=== PATIENT | male | born 1970 | race Caucasian/White ===

== ENCOUNTER 2016-06-09 09:04 | Emergency (ER) | payer OTHER ==
[~2016-06-09] VITALS: Ht 177.8 cm; Wt 104.0 kg
[2016-06-09 09:14] VITALS: TEMP 36.8; Ht 177.8 cm; Wt 104.0 kg
--- NOTE | 2016-06-09 09:34 | DIAGNOSTIC IMAGING REPORT ---
RIGHT ANKLE 3 VIEWS CLINICAL HISTORY: Right ankle pain. Twisting injury. FINDINGS: 3 views of the right ankle are obtained. No prior studies are available for comparison at the time of dictation. The skeletal structures are well mineralized. No fracture is seen. The ankle mortise is intact. Mild contour irregularity of the distal fibula may be related to remote trauma. There are large dorsal and plantar calcaneal enthesophytes. A joint effusion is noted. Soft tissue swelling is present around the ankle. IMPRESSION: Soft tissue edema and joint effusion. No acute right ankle fracture is identified. Electronically signed by: Cuate Bhat M.D. 06/09/2016 9:32 AM Dictated Date/Time: 06/09/2016 9:31 AM
[2016-06-09 10:05] VITALS: BP 133/76; PULSE 78; O2SAT 98
--- NOTE | 2016-06-09 16:55 | EMERGENCY ROOM VISIT NOTE ---
ED Visit Note First contact with patient: 09:09 CHIEF COMPLAINT: Right ankle pain. HISTORY OF PRESENT ILLNESS: Mr. Lund is a 46-year old white male who ambulates with crutches into the ED complaining of right ankle pain. He reports approximately 4 days ago he walked into a hole that was on the sidewalk and twisted his right ankle. Since that time he has been having increasing pain and swelling over the lateral aspect of the ankle. Currently he describes his pain as an achy sensation. Pain is located over the area just anterior to the lateral malleolus and the ligamentous structures. His pain is nonradiating. His pain worsens with palpation and inversion and plantarflexion. He has not identified any alleviating factors related to the pain. He rates his discomfort 5/10. He has not taken any medication for pain. Patient denies any associated symptoms including hip pain, knee pain, foot pain, leg weakness/numbness/tingling. He denies any previous significant injuries or trauma to the ankle. REVIEW OF SYSTEMS: As noted above in History of Present Illness. PAST MEDICAL HISTORY: Kidney stones, status post unspecified bilateral knee surgery. CURRENT MEDICATIONS: Patient denies. ALLERGIES TO MEDICATIONS: Indomethacin, propoxyphene. SOCIAL HISTORY: Patient is currently employed; he lives with his and feels safe in his home environment; he denies tobacco use; he admits to alcohol use. PHYSICAL EXAM: Vital Signs: Date Time Temp Pulse Resp B/P Pulse Ox O2 Delivery O2 Flow Rate FiO2 06/09/16 10:05 78 18 133/76 98 06/09/16 09:14 36.8 83 18 149/82 94 Room Air General: 46 year old female in mild distress due to pain, nontoxic-appearing, afebrile and hemodynamically stable. Neurological: Awake, alert, oriented to person place and time. Answering questions appropriately and following commands. Skin: Warm dry and pink. No soft tissue trauma. Right Lower Extremity: No gross felicia deformities. No tenderness in the hip or knee. Tenderness over the ligamentous structures anterior to the lateral malleolus with mild swelling but no bony deformity, bony crepitus or ecchymosis. Mild increase in pain with stressing the ligamentous structures throughout the ankle but no acute laxity. Full range of motion testing throughout the ankle. Throughout the foot the skin is pink and warm with brisk capillary refill. Able to distinguish light sensations through all dermatomes of the foot. ED COURSE: Patient is assessed as noted above. Right Ankle X-Rays: Was read by myself and the radiologist showing no acute fractures or dislocations. Patient is given ice for pain, swelling and comfort; patient was offered pain medications and refused. Patient is placed in a gel splint and is instructed on crutch use. Patient is educated about his condition and instructed on his treatment plan; he verbalizes understanding and agreement with the our plan. CLINICAL IMPRESSION: Right ankle sprain DISPOSITION: Patient is discharged to home in stable condition; prior to departure he was reassessed and subjectively reported he was pain-free. PLAN: Comfort measures were discussed with the patient. Patient was encouraged to follow-up with an orthopedic physician if no better in 7 to 10 days. Patient was encouraged to return emergency department as needed for increasing pain or swelling or any new/concerning symptoms.
== END 2016-06-09 10:07 | disposition home or self-care (01) ==
LOC: C.EDB 09:05 → C.EDA 10:07
DX: S93.401A Sprain of unspecified ligament of right ankle, initial encounter (principal); X58.XXXA Exposure to other specified factors, initial encounter; Z87.442 Personal history of urinary calculi; Z98.890 Other specified postprocedural states; Z88.8 Allergy status to other drugs, medicaments and biological substances

== ENCOUNTER 2016-07-18 20:39 | Emergency (ER) | payer OTHER ==
[~2016-07-18] VITALS: Ht 177.8 cm; Wt 105.2 kg
[2016-07-18 20:42] VITALS: TEMP 36.7; Ht 177.8 cm; Wt 105.2 kg
[2016-07-18] MEDS ORDERED: GI COCKTAIL PO ONE (22:00)
[2016-07-18] MEDS ORDERED: ALUMINUM/MAGNESIUM SUSP 30 ML UDC ONE (22:05)
[2016-07-18] MEDS ORDERED: LIDOCAINE HCL 2% VISC SOLN 20 ML UDC ONE (22:05)
[2016-07-18 22:10] LABS: BASO % 0.5 %; BASO ABS # 0.04 K/uL (0-0.2); COMPLETE YES; EOS % 1.9 %; HEMATOCRIT 43.8 % (42-52); IG% 0.1 %; LYMPH % 27.5 %; LYMPH ABS # 2.35 K/uL (1.2-3.4); MEAN CELL VOLUME 80.7 fL (80-100); MEAN CORPUSCULAR HEMOGLOBIN 27.6 pg (25-34); MEAN CORPUSCULAR HGB CONC 34.2 g/dl (32-36); MEAN PLATELET VOLUME 10.7 fL (7.4-10.4); MONO % 7.9 %; NEUT % 62.1 %; PLATELET COUNT 258 K/uL (130-400); RED BLOOD COUNT 5.43 M/uL (4.7-6.1); WHITE BLOOD COUNT 8.56 K/uL (4.8-10.8)
--- NOTE | 2016-07-18 22:19 | DIAGNOSTIC IMAGING REPORT ---
CHEST 2 VIEWS ROUTINE CLINICAL HISTORY: pain radiating to the back pain COMPARISON STUDY: No previous studies for comparison. FINDINGS: The bones soft tissues and hemidiaphragms are normal. The cardiomediastinal silhouette is normal. The lungs are clear. The pulmonary vasculature is normal. IMPRESSION: Negative chest. Electronically signed by: Tab Morrison M.D. 07/18/2016 10:17 PM Dictated Date/Time: 07/18/2016 10:17 PM
[2016-07-18 22:30] LABS: ALT/SGPT 64 U/L (12-78); BLOOD UREA NITROGEN 16 mg/dl (7-18); CARBON DIOXIDE 26 mmol/L (21-32); CHLORIDE 107 mmol/L (98-107); GLUCOSE 126 mg/dl (70-99); POTASSIUM 3.5 mmol/L (3.5-5.1); SODIUM 140 mmol/L (136-145)
[2016-07-18 22:33] LABS: ALKALINE PHOSPHATASE 83 U/L (45-117); AST/SGOT 19 U/L (15-37)
[2016-07-18 22:34] LABS: CALCIUM 9.2 mg/dl (8.5-10.1)
[2016-07-18 22:47] VITALS: BP 126/74; PULSE 72; O2SAT 94
--- NOTE | 2016-07-18 23:07 | EMERGENCY ROOM VISIT NOTE ---
History First contact with patient: 21:13 Chief Complaint: ILLNESS Stated Complaint: NERVOUSNESS, TINGLING IN LEFT HAND History of Present Illness The patient is a 46 year old male who presents to the Emergency Room with complaints of heartburn for the last 3 days. The patient states that he feels like he swallowed a "hot baby". The pain has been radiating to the left side of his back, has been constant, is not exacerbated by movement, and is not effected by eating or drinking. 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 On examination tonight he reports that the burning and radiation to his back has now subsided and now feels gassy and bloated. He denies any chest pain, pain radiating to the arm, headache, lightheadedness, changes in vision, nausea, vomiting, abdominal pain, or fever. Review of Systems See HPI for pertinent positives and negatives. A total of ten systems were reviewed and were otherwise negative. Past Medical/Surgical History Medical Problems: (1) No Known Active Medical Problems Surgical Problems: (1) H/O arthroscopic knee surgery Social History Smoking Status: Never Smoker Smokeless Tobacco Use: No Current/Historical Medications No Active Prescriptions or Reported Meds Allergies Coded Allergies: Propoxyphene (Unverified Allergy, Severe, RASH, 07/18/16) Indomethacin (Unverified Allergy, Intermediate, swollen face, 07/18/16) pt states that he has taken this med before with no reaction, however his doctor was ordering this med he had some at home so before he got the prescription filled he took the one he had at home. As a result he got a swollen face. Later found out that the medication he had at home was 6 years passed expiration date. So not sure if it was an allergy or because the med was . [place] Physical Exam Vital Signs Date Time Temp Pulse Resp B/P Pulse Ox O2 Delivery O2 Flow Rate FiO2 07/18/16 22:47 72 16 126/74 94 Room Air 07/18/16 20:42 36.7 71 18 148/89 92 Room Air Physical Exam GENERAL: Awake, alert, well-appearing, in no distress HENT: Normocephalic, atraumatic. EYES: Normal conjunctiva. Sclera non-icteric. NECK: Supple. Trachea midline. RESPIRATORY: Clear to auscultation. Good inspiratory effort CARDIAC: Regular rate, normal rhythm. Extremities warm and well perfused. Pulses equal. ABDOMEN: Soft, non-distended. No tenderness to palpation. RECTAL: Deferred. MUSCULOSKELETAL: Chest examination reveals no tenderness. The back is symmetrical on inspection without obvious abnormality. There is no CVA tenderness to palpation. LOWER EXTREMITIES: Calves are equal size bilaterally and non-tender. No edema. No discoloration. NEURO: Normal sensorium. No sensory or motor deficits noted. SKIN: No rash or jaundice noted. Medical Decision & Procedures Laboratory Results 07/18/16 21:55 Red Blood Count 5.43, Mean Corpuscular Volume 80.7, Mean Corpuscular Hemoglobin 27.6, Mean Corpuscular Hemoglobin Concent 34.2, Mean Platelet Volume 10.7, Neutrophils (%) (Auto) 62.1, Lymphocytes (%) (Auto) 27.5, Monocytes (%) (Auto) 7.9, Eosinophils (%) (Auto) 1.9, Basophils (%) (Auto) 0.5, Neutrophils # (Auto) 5.32, Lymphocytes # (Auto) 2.35, Monocytes # (Auto) 0.68, Eosinophils # (Auto) 0.16, Basophils # (Auto) 0.04 07/18/16 21:55 Test 07/18/16 21:55 White Blood Count 8.56 K/uL (4.8-10.8) Red Blood Count 5.43 M/uL (4.7-6.1) Hemoglobin 15.0 g/dL (14.0-18.0) Hematocrit 43.8 % (42-52) Mean Corpuscular Volume 80.7 fL (80-100) Mean Corpuscular Hemoglobin 27.6 pg (25-34) Mean Corpuscular Hemoglobin Concent 34.2 g/dl (32-36) Platelet Count 258 K/uL (130-400) Mean Platelet Volume 10.7 fL (7.4-10.4) Neutrophils (%) (Auto) 62.1 % Lymphocytes (%) (Auto) 27.5 % Monocytes (%) (Auto) 7.9 % Eosinophils (%) (Auto) 1.9 % Basophils (%) (Auto) 0.5 % Neutrophils # (Auto) 5.32 K/uL (1.4-6.5) Lymphocytes # (Auto) 2.35 K/uL (1.2-3.4) Monocytes # (Auto) 0.68 K/uL (0.11-0.59) Eosinophils # (Auto) 0.16 K/uL (0-0.5) Basophils # (Auto) 0.04 K/uL (0-0.2) RDW Standard Deviation 35.8 fL (36.4-46.3) RDW Coefficient of Variation 12.4 % (11.5-14.5) Immature Granulocyte % (Auto) 0.1 % Immature Granulocyte # (Auto) 0.01 K/uL (0.00-0.02) Anion Gap 7.0 mmol/L (3-11) Est Creatinine Clear Calc Drug Dose 85.3 ml/min Estimated GFR () 75.3 Estimated GFR (Non- 65.0 BUN/Creatinine Ratio 12.0 (10-20) Calcium Level 9.2 mg/dl (8.5-10.1) Total Bilirubin 0.3 mg/dl (0.2-1) Direct Bilirubin < 0.1 mg/dl (0-0.2) Aspartate Amino Transf (AST/SGOT) 19 U/L (15-37) Alanine Aminotransferase (ALT/SGPT) 64 U/L (12-78) Alkaline Phosphatase 83 U/L (45-117) Troponin I < 0.015 ng/ml (0-0.045) Total Protein 8.2 gm/dl (6.4-8.2) Albumin 4.3 gm/dl (3.4-5.0) Lipase 271 U/L (73-393) Medications Administered Medications (Trade) Dose Ordered Sig/Marti Route Start Time Stop Time Status Last Admin Dose Admin Miscellaneous Medication (Gi Cocktail) 24 ml ONE ONCE PO 07/18/16 22:00 07/18/16 22:01 DC 07/18/16 22:00 24 ML Lidocaine HCl (Viscous Lidocaine 2% Soln) 20 ml STK-MED ONCE .ROUTE 07/18/16 22:05 07/18/16 22:06 DC 07/18/16 22:05 20 ML Al Hydroxide/Mg Hydroxide (Maalox Susp) 30 ml STK-MED ONCE .ROUTE 07/18/16 22:05 07/18/16 22:06 DC 07/18/16 22:05 30 ML Medical Decision Patient is a 46 year old male that presents with a 3 day history of epigastric pain Differential diagnosis considered includes gastritis, myocardial infarction, gastric ulcer, esophageal spasm, aortic dissection, and musculoskeletal Labs Ordered: CBC, BMP, Lipase, LFTs, Troponin Imaging Ordered: Chest X Ray, EKG Medications: GI Cocktail Patient felt better after receiving the GI cocktail and had flatulence associated with relief of discomfort Impression Primary Impression: Epigastric abdominal pain Additional Impression: Left-sided thoracic back pain Departure Information Dispostion Home / Self-Care Condition GOOD Prescriptions No Active Prescriptions or Reported Meds Referrals No Doctor, Assigned (PCP) Patient Instructions [facility] Problem Qualifiers Additional Impression: Left-sided thoracic back pain Chronicity: acute Qualified Codes: M54.6 - Pain in thoracic spine
--- NOTE | 2016-07-18 23:21 | EMERGENCY ROOM VISIT NOTE ---
History Report prepared by Juan Pablo: Wiley Arevalo Under the Supervision of: Dr. Cuate Guadalupe M.D. First contact with patient: 21:13 Chief Complaint: ILLNESS Stated Complaint: NERVOUSNESS, TINGLING IN LEFT HAND History of Present Illness The patient is a 46 year old male who presents to the Emergency Room with complaints of constant upper back pain beginning 3 days ago. He describes the pain as a "burning" pain. He states that his pain radiates into his left shoulder blade. He states that his pain began in his abdomen and moved to his back. The patient has a previous history of GERD while chewing tobacco, but notes that he no longer chews tobacco. He states that his current pain feels like his previous GERD. He denies any fevers, or vomiting. The patient has no history of heart attacks. He notes that he got very nervous when his symptoms began. Source of History: patient Onset: 3 days ago Position: back Quality: burning Timing: constant Associated Symptoms: + abdominal pain Note: The patient also complains of pain radiating into his left shoulder blade. Review of Systems See HPI for pertinent positives & negatives. A total of 10 systems reviewed and were otherwise negative. Past Medical & Surgical Medical Problems: (1) No Known Active Medical Problems Surgical Problems: (1) H/O arthroscopic knee surgery Family History No pertinent family history stated. Social History Smoking Status: Never Smoker Occupation Status: employed Current/Historical Medications No Active Prescriptions or Reported Meds Allergies Coded Allergies: Propoxyphene (Unverified Allergy, Severe, RASH, 07/18/16) Indomethacin (Unverified Allergy, Intermediate, swollen face, 07/18/16) pt states that he has taken this med before with no reaction, however his doctor was ordering this med he had some at home so before he got the prescription filled he took the one he had at home. As a result he got a swollen face. Later found out that the medication he had at home was 6 years passed expiration date. So not sure if it was an allergy or because the med was . [place] Physical Exam Vital Signs Date Time Temp Pulse Resp B/P Pulse Ox O2 Delivery O2 Flow Rate FiO2 07/18/16 22:47 72 16 126/74 94 Room Air 07/18/16 20:42 36.7 71 18 148/89 92 Room Air Physical Exam GENERAL: Patient is in no acute distress. HEENT: No acute trauma, normocephalic atraumatic, mucous membranes moist, no nasal congestion, no scleral icterus. NECK: No stridor, no adenopathy, no meningismus, trachea is midline. LUNGS: Clear to auscultation bilaterally, no wheeze, no rhonchi, breath sounds equal. HEART: Without murmurs gallops or rubs, regular rate and rhythm. ABDOMEN: Soft, nontender, bowel sounds positive, no hernias, no peritonitis. BACK: Nontender thoracic back musculature EXTREMITIES: No cyanosis or edema, full range of motion of all the joints without pain or difficulty, no signs for acute trauma. NEUROLOGIC: Oriented x 3, no acute motor or sensory deficits, no focal weakness. SKIN: No rash, no jaundice, no diaphoresis. Medical Decision & Procedures ER Provider Diagnostic Interpretation: X-ray results as stated below per interpretation by me and the radiologist: CHEST 2 VIEWS ROUTINE FINDINGS: The bones soft tissues and hemidiaphragms are normal. The cardiomediastinal silhouette is normal. The lungs are clear. The pulmonary vasculature is normal. IMPRESSION: Negative chest. Electronically signed by: Tab Morrison M.D. Laboratory Results 07/18/16 21:55 Red Blood Count 5.43, Mean Corpuscular Volume 80.7, Mean Corpuscular Hemoglobin 27.6, Mean Corpuscular Hemoglobin Concent 34.2, Mean Platelet Volume 10.7, Neutrophils (%) (Auto) 62.1, Lymphocytes (%) (Auto) 27.5, Monocytes (%) (Auto) 7.9, Eosinophils (%) (Auto) 1.9, Basophils (%) (Auto) 0.5, Neutrophils # (Auto) 5.32, Lymphocytes # (Auto) 2.35, Monocytes # (Auto) 0.68, Eosinophils # (Auto) 0.16, Basophils # (Auto) 0.04 07/18/16 21:55 Test 07/18/16 21:55 White Blood Count 8.56 K/uL (4.8-10.8) Red Blood Count 5.43 M/uL (4.7-6.1) Hemoglobin 15.0 g/dL (14.0-18.0) Hematocrit 43.8 % (42-52) Mean Corpuscular Volume 80.7 fL (80-100) Mean Corpuscular Hemoglobin 27.6 pg (25-34) Mean Corpuscular Hemoglobin Concent 34.2 g/dl (32-36) Platelet Count 258 K/uL (130-400) Mean Platelet Volume 10.7 fL (7.4-10.4) Neutrophils (%) (Auto) 62.1 % Lymphocytes (%) (Auto) 27.5 % Monocytes (%) (Auto) 7.9 % Eosinophils (%) (Auto) 1.9 % Basophils (%) (Auto) 0.5 % Neutrophils # (Auto) 5.32 K/uL (1.4-6.5) Lymphocytes # (Auto) 2.35 K/uL (1.2-3.4) Monocytes # (Auto) 0.68 K/uL (0.11-0.59) Eosinophils # (Auto) 0.16 K/uL (0-0.5) Basophils # (Auto) 0.04 K/uL (0-0.2) RDW Standard Deviation 35.8 fL (36.4-46.3) RDW Coefficient of Variation 12.4 % (11.5-14.5) Immature Granulocyte % (Auto) 0.1 % Immature Granulocyte # (Auto) 0.01 K/uL (0.00-0.02) Anion Gap 7.0 mmol/L (3-11) Est Creatinine Clear Calc Drug Dose 85.3 ml/min Estimated GFR () 75.3 Estimated GFR (Non- 65.0 BUN/Creatinine Ratio 12.0 (10-20) Calcium Level 9.2 mg/dl (8.5-10.1) Total Bilirubin 0.3 mg/dl (0.2-1) Direct Bilirubin < 0.1 mg/dl (0-0.2) Aspartate Amino Transf (AST/SGOT) 19 U/L (15-37) Alanine Aminotransferase (ALT/SGPT) 64 U/L (12-78) Alkaline Phosphatase 83 U/L (45-117) Troponin I < 0.015 ng/ml (0-0.045) Total Protein 8.2 gm/dl (6.4-8.2) Albumin 4.3 gm/dl (3.4-5.0) Lipase 271 U/L (73-393) Laboratory results reviewed by me. Medications Administered Medications (Trade) Dose Ordered Sig/Marti Route Start Time Stop Time Status Last Admin Dose Admin Miscellaneous Medication (Gi Cocktail) 24 ml ONE ONCE PO 07/18/16 22:00 07/18/16 22:01 DC 07/18/16 22:00 24 ML Lidocaine HCl (Viscous Lidocaine 2% Soln) 20 ml STK-MED ONCE .ROUTE 07/18/16 22:05 07/18/16 22:06 DC 07/18/16 22:05 20 ML Al Hydroxide/Mg Hydroxide (Maalox Susp) 30 ml STK-MED ONCE .ROUTE 07/18/16 22:05 07/18/16 22:06 DC 07/18/16 22:05 30 ML ECG Indication: back/shoulder pain Rate (beats per minute): 71 Rhythm: normal sinus Findings: no acute ischemic change, no ectopy ED Course 2115: The patient was evaluated in room C2. A complete history and physical exam was performed. 2144: The patient's burning pain has resolved. He states that he currently feels "gassy". : Ordered GI cocktail 24 mL PO. 2221: I reassessed the patient. He is resting comfortably. His symptoms appear to have improved. 2309: Reevaluated the patient. Discussed results and discharge instructions: he verbalized understanding and agreement. The patient is ready for discharge. Medical Decision The patient is a 46 year old male who presents to the ED with complaints of back pain. Differential diagnoses considered include musculoskeletal pain, aortic dissection, pancreatitis, biliary colic, pneumonia, GERD, and [place]. There is no leukocytosis or concerning anemia. No significant electrolyte abnormality, kidney failure or hepatitis. The patient does not have evidence for pancreatitis by our testing. EKG shows a normal sinus rhythm, no acute ischemia. Cardiac enzyme testing times one is not consistent with acute cardiac injury. Chest film shows no free air, mediastinal widening or pneumothorax. The patient was given a GI cocktail, he is now symptom-free. The patient states that he feels this may be reflux and/or gas. There certainly is no evidence for an acute cardiac event. The patient was reassured and is being discharged home on antacid medications. Impression Primary Impression: Epigastric abdominal pain Additional Impression: Left-sided thoracic back pain Scribe Attestation The scribe's documentation has been prepared under my direction and personally reviewed by me in its entirety. I confirm that the note above accurately reflects all work, treatment, procedures, and medical decision making performed by me. Departure Information Dispostion Home / Self-Care Prescriptions No Active Prescriptions or Reported Meds Referrals No Doctor, Assigned (PCP) Forms HOME CARE DOCUMENTATION FORM, IMPORTANT VISIT INFORMATION, WORK / SCHOOL INSTRUCTIONS Patient Instructions My [facility] Additional Instructions - Follow up with your family doctor in the next week - Take over the counter Zantac or Prilosec daily to help relieve the epigastric pain that you experienced - If your pain recurs with exertion, you have any chest pain, fever, or worsening abdominal pain, or any other concerning symptoms please be seen by a doctor or return to the emergency department Problem Qualifiers Additional Impression: Left-sided thoracic back pain Chronicity: acute Qualified Codes: M54.6 - Pain in thoracic spine
== END 2016-07-18 23:18 | disposition home or self-care (01) ==
LOC: C.EDB 20:41 → C.EDC 23:18
DX: M54.6 Pain in thoracic spine (principal); R10.13 Epigastric pain; K21.9 Gastro-esophageal reflux disease without esophagitis; F17.220 Nicotine dependence, chewing tobacco, uncomplicated; Z96.659 Presence of unspecified artificial knee joint; Z88.8 Allergy status to other drugs, medicaments and biological substances